=== PATIENT | female | born 1955 | race Caucasian/White ===

== ENCOUNTER 2023-10-30 08:56 | Outpatient (CLI) | payer MEDICARE, OTHER ==
[~2023-10-30 08:56] MED LIST: GADOTERATE MEGLUMINE 5 MMOL/10 ML VIAL ONE; GADOTERATE MEGLUMINE 7.5 MMOL/15 ML VIAL ONE
--- NOTE | 2023-10-30 13:10 | MRI Report ---
PROCEDURE: Abdomen W/WO INDICATIONS: CYSTIC LESION OF PANCREAS CONTRAST: 22.4ml Clariscan TECHNIQUE: Coronal ultra fast SE, axial 2D spoiled GE in- and [id number]; axial breath-hold T2 fast SE. Dynam ic axial ultra fast GE during the administration of contrast; post-contrast coronal ultra fast GE or 2D spoiled GE with fat saturation from the hepatic dome to the iliac crests. Optional diffusion weig hted imaging and ADC may be performed. COMPARISON: CT report from 07/20/2010. No relevant comparisons at time of dictation. FINDINGS: Image quality: Excellent. Lung bases and heart: Large hiatal hernia. Liver: No solid mass. Gallbladder and biliary tree: No radiopaque stones or wall thickening. No biliary dilation. Spleen: No splenomegaly. Pancreas: 0.9 mm T2 hyperintense cystic lesion with close association to the pancreatic duct in the p ancreatic body (series 4, image 17). No ductal dilation. No nodularity. Adrenals: No adrenal nodule. Kidneys and ureters: No hydronephrosis. No renal cystic lesion which requires follow up. No solid mas s. Bowel and peritoneum: No bowel distension. No pathologic free fluid. Lymph nodes: No central or retroperitoneal adenopathy. Vessels: No infrarenal aortic aneurysm. Bones: No aggressive osseous abnormality. Other: No significant ventral hernia. IMPRESSION: 9 mm T2 hyperintense cystic lesion in the pancreatic body, without suspicious features. 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 Recommend imaging surveillance every 2 years for a total of 10 years , per consensus guidelines. Large hiatal hernia. Reviewed by: García Mauricio MD on 10/30/2023 1:09 PM PDT Approved by: García Mauricio MD on 10/30/2023 1:09 PM PDT Station ID: [id number]
[2023-10-30] MEDS: GADOTERATE MEGLUMINE 10 MMOL/20 ML VIAL IVP ONE (18:51)
[2023-10-30] MEDS: GADOTERATE MEGLUMINE 7.5 MMOL/15 ML VIAL IVP ONE (18:51)
[2023-10-30] MEDS: GADOTERATE MEGLUMINE 5 MMOL/10 ML VIAL IVP ONE (18:52)
== END 2023-10-30 08:57 | disposition home or self-care (01) ==
LOC: DI 08:56
PROVIDERS: ATTEND Student in an Organized Health Care Education/Training Program
DX: K86.2 Cyst of pancreas (principal)
CPT/HCPCS: 74183; A9575

== ENCOUNTER 2024-01-12 09:30 | Outpatient (CLI) | payer MEDICARE, OTHER | END 2024-01-12 09:45 | disposition home or self-care (01) | LOC: LAB.N 09:30 | PROVIDERS: ATTEND Physician Assistant Medical | DX: R35.0 Frequency of micturition (principal) | CPT/HCPCS: 87086 ==